=== PATIENT | male | born 1990 | race Caucasian/White ===

== ENCOUNTER 2018-04-01 13:47 | Emergency (ER) | payer BC ==
--- NOTE | 2018-04-01 13:59 | EDM.PDOC ---
ED HPI GENERAL MEDICAL PROBLEM - General Chief Complaint: Cardiovascular Problem Stated Complaint: PASSOUT DUE TO A MIGRANE Time Seen by Provider: 04/01/18 13:55 Source of Information: Reports: Patient History Limitations: Reports: No Limitations - History of Present Illness INITIAL COMMENTS - FREE TEXT/NARRATIVE: HISTORY AND PHYSICAL: History of present illness: Patient is a 28-year-old male who presents to the emergency room today with complaints of syncope and headache. He reports he getting up to use the bathroom and he had a headache. States "next thing I knew I woke up in my bed". Patient believes he had a syncopal event and somehow made it back into his bedroom, waking up in his bed. Prior to this event he was feeling well and had no systemic complaints. Currently he has a dull headache and neck discomfort. Denies any fever, chills, chest pain, shortness of breath or cough. Denies any abdominal pain, nausea, vomiting, diarrhea or constipation. Denies any change in vision, dizziness, light sensitivity or noise sensitivity. Review of systems: As per history of present illness and below otherwise all systems reviewed and negative. Past medical history: As per history of present illness and as reviewed below otherwise noncontributory. Surgical history: As per history of present illness and as reviewed below otherwise noncontributory. Social history: No reported history of drug or alcohol abuse. Family history: As per history of present illness and as reviewed below otherwise noncontributory. Physical exam: General: Well-developed and well-nourished 28-year-old male. Alert and oriented. Nontoxic appearing and in no acute distress. HEENT: Nontender with palpation, normocephalic, pupils equal and reactive bilaterally, negative for conjunctival pallor or scleral icterus, mucous membranes moist, throat clear, neck supple, nontender, trachea midline. No drooling or trismus noted. No meningeal signs Lungs: Clear to auscultation, breath sounds equal bilaterally, chest nontender. Heart: S1S2, regular rate and rhythm without overt murmur Abdomen: Soft, nondistended, nontender. Negative for masses or hepatosplenomegaly. Negative for costovertebral tenderness. Pelvis: Stable nontender. Genitourinary: Deferred. Rectal: Deferred. Skin: Intact, warm, dry. No lesions or rashes noted. C-Spine/Back: No pinpoint vertebral tenderness upon palpation. No crepitus, step -offs or obvious deformities. Does have some discomfort to the trapezius muscularture bilaterally. Patient is ambulatory into the emergency room with a steady and even gait. Able to walk on heels and toes. No urinary or fecal incontinence. Denies any numbness or tingling to distal extremities. Extremities: Moves all extremities per self without difficulty or deficits, negative for cords or calf pain. Neurovascular unremarkable. Neuro: Awake, alert, oriented. Cranial nerves II through XII unremarkable. Cerebellum unremarkable. Motor and sensory unremarkable throughout. Exam nonfocal. Notes: Lab work is unremarkable. Head and C-spine CT are negative. Patient does have some orthostatic vital sign changes from lying to standing. Did offer patient admission which he declined. Will give Tramadol for neck discomfort Supportive care measures were reviewed and discussed. He will follow-up with his primary care provider in the next couple days. If he continues to have symptoms he will follow-up with neurology. He denies any further questions or concerns at this time. and children are at bedside she also declines any further questions or concerns. Diagnostics: CBC, CMP, UA, CT head, CT cervical spine, orthostatic vital signs, EKG Therapeutics: IV fluid, Toradol, Zofran Prescription: Tramadol (#10) Impression: Headache Syncope Neck Pain Plan: 1. Take the remainder of the day to rest. May return to work 04/03/2018. Increase your oral fluids. 2. Tylenol and/or Ibuprofen as needed for pain. Tramadol for moderate pain. Will cause sedation, so do not take while driving or needing to be functioning outside the house. 3. Follow up with your primary care provider in the next 1-2 days. Follow up with Neurology as discussed. Return to the ED as needed and as discussed. Definitive disposition and diagnosis as appropriate pending reevaluation and review of above. Onset: Today - Related Data Allergies Allergy/AdvReac Type Severity Reaction Status Date / Time No Known Allergies Allergy Verified 04/01/18 14:00 Home Meds: Home Meds . [No Known Home Meds] 04/01/18 [History] ED ROS GENERAL - Review of Systems Review Of Systems: ROS reveals no pertinent complaints other than HPI. ED EXAM, GENERAL - Physical Exam Exam: See Below (See dictation) Course - Vital Signs Last Recorded V/S: Last Vital Signs Temp 96.8 F 04/01/18 13:58 Pulse 67 04/01/18 14:50 Resp 16 04/01/18 14:50 BP 128/72 04/01/18 14:50 Pulse Ox 94 L 04/01/18 14:50 Orthostatic Blood Pressure [ 101/67 Supine] - Orders/Labs/Meds Orders: Active Orders 24 hr Category Date Time Status EKG Documentation Completion [RC] STAT Care 04/01/18 14:05 Active Orthostatic Vital Signs [RC] ASDIRECTED Care 04/01/18 14:05 Active Cervical Spine wo Cont [CT] Stat Exams 04/01/18 14:07 Taken Head wo Cont [CT] Stat Exams 04/01/18 14:05 Taken DRUG SCREEN, URINE [URCHEM] Stat Lab 04/01/18 14:53 Ordered UA W/MICROSCOPIC [URIN] Stat Lab 04/01/18 14:35 Ordered Labs: Laboratory Tests 04/01/18 04/01/18 04/01/18 Range/Units 14:30 14:30 14:35 WBC 6.79 (4.0-11.0) K/uL RBC 4.79 (4.50-5.90) M/uL Hgb 14.5 (13.0-17.0) g/dL Hct 42.4 (38.0-50.0) % MCV 88.5 (80.0-98.0) fL MCH 30.3 (27.0-32.0) pg MCHC 34.2 (31.0-37.0) g/dL RDW Std Deviation 41.3 (28.0-62.0) fl RDW Coeff of Christina 13 (11.0-15.0) % Plt Count 203 (150-400) K/uL MPV 10.30 (7.40-12.00) fL Neut % (Auto) 50.7 (48.0-80.0) % Lymph % (Auto) 37.1 (16.0-40.0) % [place] % (Auto) 7.5 (0.0-15.0) % Eos % (Auto) 4.4 (0.0-7.0) % Baso % (Auto) 0.3 (0.0-1.5) % Neut # (Auto) 3.4 (1.4-5.7) K/uL Lymph # (Auto) 2.5 H (0.6-2.4) K/uL [place] # (Auto) 0.5 (0.0-0.8) K/uL Eos # (Auto) 0.3 (0.0-0.7) K/uL Baso # (Auto) 0.0 (0.0-0.1) K/uL Nucleated RBC % 0.0 /100WBC Nucleated RBCs # 0 K/uL Sodium 140 (136-148) mmol/L Potassium 3.8 (3.5-5.1) mmol/L Chloride 103 (98-107) mmol/L Carbon Dioxide 31.6 (21.0-32.0) mmol/L BUN 11 (7.0-18.0) mg/dL Creatinine 1.1 (0.8-1.3) mg/dL Est Cr Clr Drug Dosing 103.55 mL/min Estimated GFR (MDRD) > 60.0 ml/min Glucose 102 (74-106) mg/dL Calcium 9.1 (8.5-10.1) mg/dL Total Bilirubin 0.3 (0.2-1.0) mg/dL AST 18 (15-37) IU/L ALT 29 (14-63) IU/L Alkaline Phosphatase 66 (46-116) U/L Total Protein 7.0 (6.4-8.2) g/dL Albumin 4.3 (3.4-5.0) g/dL Globulin 2.7 (2.0-3.5) g/dL Albumin/Globulin Ratio 1.6 (1.3-2.8) Urine Color YELLOW Urine Appearance CLEAR Urine pH 6.5 (5.0-8.0) Ur Specific [place] <= 1.005 (1.001-1.035) Urine Protein NEGATIVE (NEGATIVE) mg/dL Urine Glucose (UA) NEGATIVE (NEGATIVE) mg/dL Urine Ketones NEGATIVE (NEGATIVE) mg/dL Urine Occult Blood NEGATIVE (NEGATIVE) Urine Nitrite NEGATIVE (NEGATIVE) Urine Bilirubin NEGATIVE (NEGATIVE) Urine Urobilinogen 0.2 (<2.0) EU/dL Ur Leukocyte Esterase NEGATIVE (NEGATIVE) Urine RBC 0-1 (0-2/HPF) Urine WBC 0-1 (0-5/HPF) Ur Epithelial Cells RARE (NONE-FEW) Urine Bacteria RARE (NEGATIVE) Urine Opiates Screen (NEGATIVE) Ur Oxycodone Screen (NEGATIVE) Urine Methadone Screen (NEGATIVE) Ur Barbiturates Screen (NEGATIVE) Ur Phencyclidine Scrn (NEGATIVE) Ur Amphetamine Screen (NEGATIVE) U Methamphetamines Scrn (NEGATIVE) U Benzodiazepines Scrn (NEGATIVE) U Cocaine Metab Screen (NEGATIVE) U Marijuana (THC) Screen (NEGATIVE) 04/01/18 Range/Units 14:53 WBC (4.0-11.0) K/uL RBC (4.50-5.90) M/uL Hgb (13.0-17.0) g/dL Hct (38.0-50.0) % MCV (80.0-98.0) fL MCH (27.0-32.0) pg MCHC (31.0-37.0) g/dL RDW Std Deviation (28.0-62.0) fl RDW Coeff of Christina (11.0-15.0) % Plt Count (150-400) K/uL MPV (7.40-12.00) fL Neut % (Auto) (48.0-80.0) % Lymph % (Auto) (16.0-40.0) % [place] % (Auto) (0.0-15.0) % Eos % (Auto) (0.0-7.0) % Baso % (Auto) (0.0-1.5) % Neut # (Auto) (1.4-5.7) K/uL Lymph # (Auto) (0.6-2.4) K/uL [place] # (Auto) (0.0-0.8) K/uL Eos # (Auto) (0.0-0.7) K/uL Baso # (Auto) (0.0-0.1) K/uL Nucleated RBC % /100WBC Nucleated RBCs # K/uL Sodium (136-148) mmol/L Potassium (3.5-5.1) mmol/L Chloride (98-107) mmol/L Carbon Dioxide (21.0-32.0) mmol/L BUN (7.0-18.0) mg/dL Creatinine (0.8-1.3) mg/dL Est Cr Clr Drug Dosing mL/min Estimated GFR (MDRD) ml/min Glucose (74-106) mg/dL Calcium (8.5-10.1) mg/dL Total Bilirubin (0.2-1.0) mg/dL AST (15-37) IU/L ALT (14-63) IU/L Alkaline Phosphatase (46-116) U/L Total Protein (6.4-8.2) g/dL Albumin (3.4-5.0) g/dL Globulin (2.0-3.5) g/dL Albumin/Globulin Ratio (1.3-2.8) Urine Color Urine Appearance Urine pH (5.0-8.0) Ur Specific [place] (1.001-1.035) Urine Protein (NEGATIVE) mg/dL Urine Glucose (UA) (NEGATIVE) mg/dL Urine Ketones (NEGATIVE) mg/dL Urine Occult Blood (NEGATIVE) Urine Nitrite (NEGATIVE) Urine Bilirubin (NEGATIVE) Urine Urobilinogen (<2.0) EU/dL Ur Leukocyte Esterase (NEGATIVE) Urine RBC (0-2/HPF) Urine WBC (0-5/HPF) Ur Epithelial Cells (NONE-FEW) Urine Bacteria (NEGATIVE) Urine Opiates Screen NEGATIVE (NEGATIVE) Ur Oxycodone Screen NEGATIVE (NEGATIVE) Urine Methadone Screen NEGATIVE (NEGATIVE) Ur Barbiturates Screen NEGATIVE (NEGATIVE) Ur Phencyclidine Scrn NEGATIVE (NEGATIVE) Ur Amphetamine Screen NEGATIVE (NEGATIVE) U Methamphetamines Scrn NEGATIVE (NEGATIVE) U Benzodiazepines Scrn NEGATIVE (NEGATIVE) U Cocaine Metab Screen NEGATIVE (NEGATIVE) U Marijuana (THC) Screen NEGATIVE (NEGATIVE) Meds: Medications Discontinued Medications Generic Name Dose Route Start Last Admin Trade Name Freq PRN Reason Stop Dose Admin Sodium Chloride 1,000 mls @ 999 mls/hr 04/01/18 14:05 04/01/18 14:24 Normal Saline IV 04/01/18 15:05 999 mls/hr STAT ONE Administration Ketorolac Tromethamine 30 mg 04/01/18 14:07 04/01/18 14:25 Toradol IVPUSH 04/01/18 14:08 30 mg ONETIME ONE Administration Departure - Departure Time of Disposition: 15:40 Disposition: Home, Self-Care 01 Clinical Impression: Neck pain Syncope Qualifiers: Syncope type: unspecified Qualified Code(s): R55 - Syncope and collapse Headache Qualifiers: Headache type: unspecified Headache chronicity pattern: acute headache Intractability: not intractable Qualified Code(s): R51 - Headache Instructions: General Headache Without Cause, [id number], Syncope, Easy-to- Read Referrals: PCP,None [Primary Care Provider] - Forms: ED Department Discharge Additional Instructions: The following information is given to patients seen in the emergency department who are being discharged to home. This information is to outline your options for follow-up care. We provide all patients seen in our emergency department with a follow-up referral. The need for follow-up, as well as the timing and circumstances, are variable depending upon the specifics of your emergency department visit. If you don't have a primary care physician on staff, we will provide you with a referral. We always advise you to contact your personal physician following an emergency department visit to inform them of the circumstance of the visit and for follow-up with them and/or the need for any referrals to a consulting specialist. The emergency department will also refer you to a specialist when appropriate. This referral assures that you have the opportunity for follow-up care with a specialist. All of these measure are taken in an effort to provide you with optimal care, which includes your follow-up. Under all circumstances we always encourage you to contact your private physician who remains a resource for coordinating your care. When calling for follow-up care, please make the office aware that this follow-up is from your recent emergency room visit. If for any reason you are refused follow-up, please contact the [facility] Emergency Department at and asked to speak to the emergency department charge nurse. [facility] Primary Care [address] [place] [id number] [facility] Specialty Care - Neurology Professional Building [address] [place] [address], [address] [place] [address] 1. Take the remainder of the day to rest. May return to work 04/03/2018. Increase your oral fluids. 2. Tylenol and/or Ibuprofen as needed for pain. Tramadol for moderate pain. Will cause sedation, so do not take while driving or needing to be functioning outside the house. 3. Follow up with your primary care provider in the next 1-2 days. Follow up with Neurology as discussed. Return to the ED as needed and as discussed. - My Orders Last 24 Hours: My Active Orders 04/01/18 14:05 EKG Documentation Completion [RC] STAT Orthostatic Vital Signs [RC] ASDIRECTED Head wo Cont [CT] Stat 04/01/18 14:07 Cervical Spine wo Cont [CT] Stat 04/01/18 14:35 UA W/MICROSCOPIC [URIN] Stat 04/01/18 14:53 DRUG SCREEN, URINE [URCHEM] Stat - Assessment/Plan Last 24 Hours: My Active Orders 04/01/18 14:05 EKG Documentation Completion [RC] STAT Orthostatic Vital Signs [RC] ASDIRECTED Head wo Cont [CT] Stat 04/01/18 14:07 Cervical Spine wo Cont [CT] Stat 04/01/18 14:35 UA W/MICROSCOPIC [URIN] Stat 04/01/18 14:53 DRUG SCREEN, URINE [URCHEM] Stat
[2018-04-01] MEDS ORDERED: Sodium Chloride 0.9% 1,000 ML IV ONE (14:05)
[2018-04-01] MEDS ORDERED: Ketorolac 30 MG/ML SDV IVPUSH ONE (14:07)
[2018-04-01 15:04] LABS: CHLORIDE,CL 103 mmol/L (98-107); SODIUM,NA 140 mmol/L (136-148)
--- NOTE | 2018-04-02 10:27 | CT ---
EXAM DATE: 04/01/18 PATIENT'S AGE: 28 Patient: EARLINE CAPUTO Facility: [place], [place] Site . Site : 1990 Study: CT Head WO CONT [id number] 2:55:45 PM Ordering Physician: Doctor Avila Final Report: INDICATION: Head injury. Syncope TECHNIQUE: CT head without contrast. COMPARISON: None available FINDINGS: The ventricles and sulci are within normal limits. There is no mass effect or midline shift. There is no loss of felipe-white differentiation. There is no evidence of a gross acute intracranial hemorrhage. No acute calvarial fracture is seen. The visualized paranasal sinuses and mastoid air cells are clear. The visualized orbits are within normal limits. IMPRESSION: No evidence of a gross acute intracranial hemorrhage, mass effect or loss of felipe-white differentiation. Dictated by Blade Hilario MD @ 04/01/2018 3:28:07 PM Please note that all CT scans at this facility use dose modulation, iterative reconstruction, and/or weight-based dosing when appropriate to reduce radiation dose to as low as reasonably achievable. Dictated by: Blade Hilario MD @ 04/01/2018 15:28:11 (Electronic Signature) Report Signed by Proxy. [facility]
--- NOTE | 2018-04-02 10:28 | CT ---
EXAM DATE: 04/01/18 PATIENT'S AGE: 28 Patient: EARLINE CAPUTO Facility: [place], [place] Site . Site : 1990 Study: CT Spine Cervical WO CONT [id number]/21/[id number] 2:59:30 PM Ordering Physician: Doctor Avila Final Report: INDICATION: Injury TECHNIQUE: CT cervical spine without contrast. COMPARISON: None available FINDINGS: There is straightening of the cervical lordosis. The craniocervical and atlantoaxial alignments are near anatomical. There is no evidence of an acute cervical spine fracture. There is no significant precervical soft tissue swelling. IMPRESSION: No evidence of acute cervical spine fracture. Dictated by Blade Hilario MD @ 04/01/2018 3:33:12 PM Please note that all CT scans at this facility use dose modulation, iterative reconstruction, and/or weight-based dosing when appropriate to reduce radiation dose to as low as reasonably achievable. Dictated by: Blade Hilario MD @ 04/01/2018 15:33:17 (Electronic Signature) Report Signed by Proxy. [facility]
== END 2018-04-01 15:59 | disposition home or self-care (01) ==
LOC: MW.ED 13:47
DX: R55 Syncope and collapse (principal); R51 Headache; M54.2 Cervicalgia
CPT/HCPCS: 36415; 70450; 72125; 80053; 80305; 81001; 85025; 93005; 96361; 96374; 99284; J1885; J7040